=== PATIENT | female | born 1985 | race Caucasian/White ===

== ENCOUNTER 2016-07-25 01:09 | Emergency (ER) | payer OTHER ==
--- NOTE | 2016-07-25 01:14 | ED Physician Documentation ---
General Adult - HISTORIAN Historian: patient - HPI Stated Complaint: L calf pain Chief Complaint: General Adult Onset: days ago (4) Timing: still present Severity: moderate Further Comments: yes (Pt is a 31 yo female with L calf pain x 11 days. Does not recall any injury. Pt is a smoker. She does not use control pills. She has an IUD. Pt has PMHx pituitary adenoma, hypothyroism, psoriasis.) - ROS CONST: no problems EYES/ENT: none CVS/RESP: none GI/: none MS/SKIN/LYMPH: other (L calf pain) - PAST HX Past History: other (pituitary adenoma, psoriasis, hypothyroidism) Allergies/Adverse Reactions: Allergies Allergy/AdvReac Type Severity Reaction Status Date / Time No Known Allergies Allergy Verified 07/25/16 01:29 Home Medications: Ambulatory Orders Medication Instructions Recorded Apremilast [Otezla] 30 mg PO BID 07/25/16 Cabergoline [Cabergoline] 1 mg PO WEEK 07/25/16 Levothyroxine Sodium [Synthroid] 25 mcg PO D 07/25/16 - SOCIAL HX Smoking History: cigarettes - FAMILY HX Family History: No - REVIEWED ASSESSMENTS Nursing Assessment Reviewed: Yes Vitals Reviewed: Yes Progress - Progress Progress: D-dimer wnl Toradol 60 mg IM musculoskeletal pain vs mild phlebitis General Adult Physical Exam - PHYSICAL EXAM GENERAL APPEARANCE: mild distress EENT: eye inspection normal, pharynx normal NECK: normal inspection, supple RESPIRATORY: no resp distress, chest non-tender, breath sounds normal CVS: reg rate & rhythm, heart sounds normal BACK: normal inspection, no CVA tenderness SKIN: warm/dry, normal color EXTREMITIES: normal range of motion, no evidence of injury, tenderness (L calf tenderness, no palpable cords, no swelling) NEURO: oriented X3, motor nml, sensation nml Discharge Clincal Impression: Pain of left calf Referrals: Althea Campoverde MD [Primary Care Provider] - Home Medications: Ambulatory Orders Apremilast [Otezla] 30 mg PO BID 07/25/16 Cabergoline [Cabergoline] 1 mg PO WEEK 07/25/16 Levothyroxine Sodium [Synthroid] 25 mcg PO D 07/25/16 Condition: Good Disposition: 01 HOME, SELF-CARE Decision to Admit: NO Decision Time: 02:49
[2016-07-25 01:50] LABS: BASOPHILS % 0.2 (0.0-1.5); EOSINOPHILS % 1.1 % (0.0-6.8); LYMPHOCYTES # 2.8 # k/uL (0.6-4.0); MEAN CORPUSCULAR HEMOGLOBIN 30.2 pg (28.0-34.0); MONOCYTES # 0.5 # k/uL (0.0-0.9); MONOCYTES % 5.2 % (0.0-11.0); NEUTROPHILS # 6.8 # k/uL (1.4-7.7)
[2016-07-25 02:13] LABS: eGFR (African) > 60; eGFR (Non-African) > 60
[2016-07-25] MEDS ORDERED: KETOROLAC TROMETHAMINE 60 MG/2 ML VIAL IM ONE (02:26)
[2016-07-25 03:50] VITALS: BP 124/68
== END 2016-07-25 02:50 | disposition home or self-care (01) ==
LOC: ED 01:09
DX: M79.662 Pain in left lower leg (principal); F17.210 Nicotine dependence, cigarettes, uncomplicated
CPT/HCPCS: 80053; 84703; 85025; 85379; 85610; 85730; J1885; 96372; 99283